=== PATIENT | female | born 1975 | race Caucasian/White ===

== ENCOUNTER 2016-06-04 17:31 | Emergency (ER) | payer BC ==
[2016-06-04 18:40] LABS: Hematocrit 39 % (35-47); Hemoglobin 13.2 g/dl (12.0-16.0); Mean Corpuscular HGB Conc 34 g/dl (31-36); Mean Corpuscular Hemoglobin 31 pg (27-31); Mean Corpuscular Volume 91 fL (80-97); Mean Platelet Volume 7 um3 (7.4-10.4); Red Blood Count 4.34 10^6/ul (4.0-5.4); Red Cell Distribution Width 13 % (10.5-15); White Blood Count 11.4 10^3/ul (3.5-10.8)
[2016-06-04 18:56] LABS: Albumin 4.5 g/dL (3.2-5.2); BUN/Creatinine Ratio 17.9 (8-20); Calcium 9.8 mg/dL (8.6-10.3); EGFR African American 97.1 (>60); EGFR Non-African American 75.5 (>60); Potassium 3.5 mmol/L (3.5-5.0); Total Bilirubin 0.3 mg/dL (0.2-1.0); Total Protein 7.5 g/dL (6.4-8.9)
[2016-06-04 19:05] LABS: Urine Bacteria Absent (Absent); Urine Bilirubin Negative (Negative); Urine Glucose Negative (Negative); Urine Nitrite Negative (Negative)
--- NOTE | 2016-06-04 19:32 | RAD ---
INDICATION: Early with bleeding COMPARISON: None TECHNIQUE: Transvaginal scans were performed for the purposes of early evaluation. FINDINGS: Transvaginal scans do not confirm an intrauterine gestation. The endometrial stripe measures 0.9 cm the uterus measures 8.5 x 4.9 x 5.4 cm and contains either a small lower uterine segment/cervical fibroid versus nabothian cyst The right ovary measures 3.7 x 1.4 x 1.1 cm and the left ovary 3.5 x 1.5 x 1.1 cm. IMPRESSION: NO INTRAUTERINE IS IDENTIFIED. THERE IS NO ADNEXAL MASS. SUGGEST CORRELATION WITH SERIAL BETA-HCGS AND FOLLOW-UP SONOGRAPHY INDICATED
[2016-06-04 19:42] VITALS: BP 147/105
--- NOTE | 2016-06-04 20:30 | ED ---
James Benites Janilya, scribed for Bella Bojorquez MD on 06/04/16 at 1906 . - HPI Summary HPI Summary: A 41 y/[facility]ting she has noticed 6 days ago. Pt also reports cramping, described as "pinching" pain. It briefly stopped, however , it started again today. Pt is not hemorrhaging, but bleeding mildly. Pt is 7 weeks . It is her second . LNMP 04/18/2016. No SHx of tobacco or EtOH use. PMHx HTN controlled with medicine. FMHx HTN. - History of Current Complaint Chief Complaint: EDOBProblems Stated Complaint: BLEEDING/7 WKS Time Seen by Provider: 06/04/16 18:29 Hx Obtained From: Patient Chief Complaint: Vaginal Bleeding Onset/Duration: Started Days Ago, Atraumatic, Still Present Timing: Constant Severity: Moderate Current Severity: Moderate - Assessment Hx Now: No - Allergies/Home Medications Allergies/Adverse Reactions: Allergies Allergy/AdvReac Type Severity Reaction Status Date / Time Penicillins [PCN] Allergy Rash Verified 03/29/16 14:12 PMH/Surg Hx/FS Hx/Imm Hx Endocrine/Hematology History: Denies: Hx Diabetes, Hx Thyroid Disease Cardiovascular History: Reports: Hx Hypertension Respiratory History: Denies: Hx Asthma, Hx Chronic Obstructive Pulmonary Disease (COPD) - Cancer History Cancer Type, Location and Year: white blood cells seen by dr hill 1 year ago retested with normal results Hx Chemotherapy: No Hx Radiation Therapy: No Infectious Disease History: No Infectious Disease History: Reports: Hx Shingles Denies: Hx Clostridium Difficile, Hx Hepatitis, Hx Human Immunodeficiency Virus (HIV), Hx of Known/Suspected MRSA, Hx Tuberculosis, Hx Known/Suspected VRE , Hx Known/Suspected VRSA, History Other Infectious Disease, Traveled Outside the [place] in Last 30 Days - Family History Known Family History: Positive: Hypertension - Social History Lives: With Family Alcohol Use: Weekly Alcohol Amount: 4 drinks Substance Use Type: Reports: None Smoking Status (MU): Never Smoked Tobacco Have You Smoked in the Last Year: No Review of Systems Positive: Abdominal Pain - mild cramping Genitourinary: Other - vaginal bleeding All Other Systems Reviewed And Are Negative: Yes Physical Exam - Physical Exam Triage Information Reviewed: Yes Vital Signs On Initial Exam: Temp Pulse Resp BP Pulse Ox 98.2 F 77 18 140/91 99 06/04/16 17:36 06/04/16 18:19 06/04/16 17:36 06/04/16 18:20 06/04/16 18:19 Vital Signs Reviewed: Yes Appearance: Positive: Well-Appearing, No Pain Distress Skin: Positive: Warm, Skin Color Reflects Adequate Perfusion, Dry Eyes: Positive: EOMI, [place] ENT: Positive: Pharynx normal, TMs normal Neck: Positive: Supple, Nontender Respiratory/Lung Sounds: Positive: Clear to Auscultation, Breath Sounds Present. Negative: Rales, Rhonchi - no wheezes Cardiovascular: Positive: RRR. Negative: Murmur, Rub - no gallops Abdomen Description: Positive: Nontender, Soft. Negative: Distended, Guarding - no rebound Bowel Sounds: Positive: Present Musculoskeletal: Positive: Strength/ROM Intact. Negative: Edema Left, Edema Right Neurological: Positive: Sensory/Motor Intact, Alert, Oriented to Person Place, Time, CN Intact II-III Psychiatric: Positive: Affect/Mood Appropriate Diagnostics - Vital Signs Vital Signs Temp Pulse Resp BP Pulse Ox 06/04/16 18:20 140/91 06/04/16 18:19 77 99 06/04/16 17:36 98.2 F 74 18 153/106 99 - Laboratory Lab Results: Lab Results 06/04/16 06/04/16 06/04/16 Range/Units 18:30 18:30 18:30 WBC 11.4 H (3.5-10.8) 10^3/ul RBC 4.34 (4.0-5.4) 10^6/ul Hgb 13.2 (12.0-16.0) g/dl Hct 39 (35-47) % MCV 91 (80-97) fL MCH 31 (27-31) pg MCHC 34 (31-36) g/dl RDW 13 (10.5-15) % Plt Count 292 (150-450) 10^3/ul MPV 7 L (7.4-10.4) um3 Neut % (Auto) 61.5 (38-83) % Lymph % (Auto) 29.5 (25-47) % [place] % (Auto) 6.2 (1-9) % Eos % (Auto) 2.4 (0-6) % Baso % (Auto) 0.4 (0-2) % Absolute Neuts (auto) 7.0 (1.5-7.7) 10^3/ul Absolute Lymphs (auto) 3.4 (1.0-4.8) 10^3/ul Absolute Monos (auto) 0.7 (0-0.8) 10^3/ul Absolute Eos (auto) 0.3 (0-0.6) 10^3/ul Absolute Basos (auto) 0 (0-0.2) 10^3/ul Absolute Nucleated RBC 0.01 10^3/ul Nucleated RBC % 0.1 Sodium 136 (133-145) mmol/L Potassium 3.5 (3.5-5.0) mmol/L Chloride 102 (101-111) mmol/L Carbon Dioxide 26 (22-32) mmol/L Anion Gap 8 (2-11) mmol/L BUN 15 (6-24) mg/dL Creatinine 0.84 (0.51-0.95) mg/dL Est GFR ( Amer) 97.1 (>60) Est GFR (Non-Af Amer) 75.5 (>60) BUN/Creatinine Ratio 17.9 (8-20) Glucose 84 (70-100) mg/dL Lactic Acid 0.5 (0.5-2.0) mmol/L Calcium 9.8 (8.6-10.3) mg/dL Total Bilirubin 0.30 (0.2-1.0) mg/dL AST 17 (13-39) U/L ALT 21 (7-52) U/L Alkaline Phosphatase 46 (34-104) U/L Total Protein 7.5 (6.4-8.9) g/dL Albumin 4.5 (3.2-5.2) g/dL Globulin 3.0 (2-4) g/dL Albumin/Globulin Ratio 1.5 (1-3) Result Diagrams: 06/04/16 18:30 06/04/16 18:30 Lab Statement: Any lab studies that have been ordered have been reviewed, and results considered in the medical decision making process. - Ultrasound No standard instances Ultrasound Interpretation: Positive (See Comments) - IMPRESSION: NO INTRAUTERINE IS IDENTIFIED. THERE IS NO ADNEXAL MASS. SUGGEST CORRELATION WITH SERIAL BETA-HCGS AND FOLLOW-UP SONOGRAPHY INDICATED Ultrasound Interpretation Completed By: Radiologist Course/Dx - Course Course Of Treatment: 41 yo female with positive test who comes in with vaginal bleeding and no pain on exam. Her u/s does not show a and her bhcg is very low. Pt understands there is the risk of this being an ectopic, no or a very early normal and knows she needs followup bhcg. Pt will receiving [facility] tonight before discharge. - Diagnoses Provider Diagnoses: Threatened miscarriage in early Discharge - Discharge Plan Condition: Stable Disposition: HOME Patient Education Materials: Threatened Miscarriage (ED) Referrals: Luisito Tello MD [Primary Care Provider] - Additional Instructions: Follow up with your OB in two days. The documentation as recorded by the James warner Janilya accurately reflects the service I personally performed and the decisions made by me, Bella Bojorquez MD.
[2016-06-04] MEDS ORDERED: RHO D Immune Globulin (HUMAN)* 300 MCG = 1,500 I.U. INJ IM SCH (21:00)
== END 2016-06-04 21:00 | disposition home or self-care (01) ==
LOC: ED 17:31
DX: O20.0 Threatened abortion (principal); R10.9 Unspecified abdominal pain; N93.9 Abnormal uterine and vaginal bleeding, unspecified; Z3A.01 Less than 8 weeks gestation of pregnancy
CPT/HCPCS: 36415; 76817; 80053; 81003; 81015; 83605; 84702; 85025; 85610; 85730; 86850; 86900; 86901; 87086; 96372; 99282; J2790

== ENCOUNTER 2017-09-24 08:08 | Emergency (ER) | payer BC ==
[2017-09-24 08:41] VITALS: BP 140/92
--- NOTE | 2017-09-24 09:47 | UC ---
Artur Benites Julia, scribed for Leanne Huber MD on 09/24/17 at 0913 . General HPI - HPI Summary HPI Summary: This patient is a 42 year old F presenting to [facility] with a chief complaint of general malaise with chills, nausea, and fatigue for the past three days. Patient reports minor post nasal drip, neck pain, body ache. Patient denies ear pain, sinus pain, cough, rashes, vomiting, diarrhea, and dysuria. Symptoms relieved by NSAIDS. The patient rates the pain 2/10 in severity. Son is positive strep contact diagnosed on 09/22/17. Pt requesting a strep test. LNMP . Declines testing. Blood pressure medication not taken today , as she ran out of prescription. She is picking up her prescription later today. No OTC Meds taken Medications reviewed with patient. - History of Current Complaint Chief Complaint: UCGeneralIllness Stated Complaint: HEADACHE,NECK PAIN Hx Obtained From: Patient Hx Last Menstrual Period: 09/04/17 Onset/Duration: Lasting Days Timing: Constant Pain Intensity: 2 Pain Location at: neck and body ache Character: general malaise Alleviating: NSAIDS Associated Signs & Symptoms: Positive: Nausea, Other - sweats, fatigue. Negative: Dysuria - Allergy/Home Medications Allergies/Adverse Reactions: Allergies Allergy/AdvReac Type Severity Reaction Status Date / Time Beta-Blockers Allergy Palpitation Verified 09/24/17 08:21 (Beta-Adrenergic Bloc s Penicillins Allergy Rash Verified 09/24/17 08:21 Home Medications: Home Medications Butalb/Acetamin/Caff TAB* [Fioricet TAB*] 1 tab PO Q6H PRN 09/24/17 [History Confirmed 09/24/17] PMH/Surg Hx/FS Hx/Imm Hx Previously Healthy: Yes Cardiovascular History: Hypertension - Surgical History Surgical History: Yes Surgery Procedure, Year, and Place: oral surgery 2005 - Family History Known Family History: Positive: Hypertension - Social History Occupation: Employed Full-time Lives: With Family Alcohol Use: Occasionally Alcohol Amount: 4 drinks Substance Use Type: None Smoking Status (MU): Never Smoked Tobacco Have You Smoked in the Last Year: No - Immunization History Most Recent Influenza Vaccination: utd Most Recent Tetanus Shot: unsure Most Recent Pneumonia Vaccination: none Review of Systems Constitutional: Chills - and sweats, Fatigue Skin: Negative ENT: Negative - ear pain, sinus pain, Other - post nasal drip Respiratory: Negative Gastrointestinal: Negative - vomiting, diarrhea, Nausea Genitourinary: Negative All Other Systems Reviewed And Are Negative: Yes Physical Exam Triage Information Reviewed: Yes Appearance: Well-Appearing, No Pain Distress, Well-Nourished, Other: - congested sounding Vital Signs: Initial Vital Signs Temp 99.1 F 09/24/17 08:24 Pulse 75 09/24/17 08:24 Resp 16 09/24/17 08:24 BP 149/110 09/24/17 08:24 Pulse Ox 98 09/24/17 08:24 Vital Signs Reviewed: Yes Eye Exam: Normal Eyes: Positive: Conjunctiva Clear ENT: Positive: Pharynx normal, Nasal congestion, Uvula midline. Negative: TMs normal - scant fluid right ear Dental Exam: Normal Neck exam: Normal Neck: Positive: Supple, Nontender, No Lymphadenopathy, Other: - Full AROM - no discomfort Respiratory Exam: Normal Respiratory: Positive: Chest non-tender, Lungs clear, Normal breath sounds, No respiratory distress, No accessory muscle use Cardiovascular: Positive: RRR, No Murmur, Pulses Normal Abdominal Exam: Normal Abdomen Description: Positive: Nontender, No Organomegaly, Soft Bowel Sounds: Positive: Present Musculoskeletal Exam: Normal Musculoskeletal: Positive: Strength Intact Neurological Exam: Normal Neurological: Positive: Alert Psychological Exam: Normal Psychological: Positive: Normal Response To Family Skin Exam: Normal Course/Dx - Course Course Of Treatment: PT with congestion, body aches, fatigue x 5 days. Pt with strep throat exposure. Will check strep - neg. recommend flonase. motrin/ apap. hydrate. secretion precaution. return precaution. pt in agreement with plan. Pt with HTN - needs to resume meds - pt has an Rx - Differential Dx - Multi-Symptom Provider Diagnoses: URI. congestion. hypertension Discharge - Sign-Out/Discharge Documenting (check all that apply): Discharge/Admit/Transfer - Discharge Plan Condition: Stable Disposition: HOME Prescriptions: Fluticasone NASAL SPRAY 50MCG* [Flonase NASAL SPRAY 50MCG*] 2 spray BOTH NARES DAILY #1 btl Patient Education Materials: Upper Respiratory Infection (ED), Serous Otitis Media (ED) Forms: *Work Release Referrals: Luisito eTllo MD [Primary Care Provider] - Additional Instructions: The doctor that evaluated you today thinks your symptoms are related to a viral infection. These symptoms can last 7-8 days until you are feeling completely normal. It is recommended the following: - alternate ibuprofen (Advil, Motrin) and tylenol every 3 hours for fever, body aches - Stay well hydrated - drink plenty of non-alcoholic, non-caffinated beverages - use nasal spray as instructed - Okay to use over the counter allergy and symptomatic treatment. Be careful with decongestant medication such as psuedoephederine. Your blood pressure was noted to be high today. Decongestants can increased blood pressure. It is important you resume your blood pressure medication Contact your doctor to schedule a follow-up appointment. If your symptoms change, you have uncontrolled vomiting, pain, fever, or ANY other concerns it is recommended you go directly to the emergency department for further evaluation - Billing Disposition and Condition Condition: STABLE Disposition: HOME The documentation as recorded by the Artur warner Julia accurately reflects the service I personally performed and the decisions made by me, Leanne Huber MD.
== END 2017-09-24 09:55 | disposition home or self-care (01) ==
LOC: UCEAST 08:08
DX: R53.81 Other malaise (principal); R68.83 Chills (without fever); R11.0 Nausea; R53.83 Other fatigue; R09.82 Postnasal drip; M54.2 Cervicalgia; M79.1 Myalgia; I10 Essential (primary) hypertension; Z88.0 Allergy status to penicillin; Z88.8 Allergy status to other drugs, medicaments and biological substances
CPT/HCPCS: 87651; 99212; G0463

== ENCOUNTER 2019-02-19 10:15 | Emergency (ER) | payer BC ==
[2019-02-19 10:39] VITALS: BP 139/75
--- NOTE | 2019-02-19 10:59 | UC ---
Throat Pain/Nasal Donis HPI - HPI Summary HPI Summary: 43 yo female presents with sore throat. She tells me that 3-4 days ago she developed a sore throat, headache, and general body aches. Symptoms have been persisting since that time. She has not taken anything OTC for her symptoms. She is eating, drinking, and tolerating po well. Denies fever, chills, sinus symptoms, cough, sob, rash. - History of Current Complaint Chief Complaint: UCRespiratory Stated Complaint: THROAT PAIN Time Seen by Provider: 02/19/19 10:59 Hx Obtained From: Patient Hx Last Menstrual Period: 02/12/19 Onset/Duration: Gradual Onset Severity: Moderate Pain Intensity: 8 Pain Scale Used: 0-10 Numeric - Allergies/Home Medications Allergies/Adverse Reactions: Allergies Allergy/AdvReac Type Severity Reaction Status Date / Time Beta-Blockers Allergy Palpitation Verified 02/19/19 10:39 (Beta-Adrenergic Bloc s Penicillins Allergy Rash Verified 02/19/19 10:39 Home Medications: Home Medications Atenolol TAB* [Tenormin TAB* 25 MG] 25 mg PO DAILY 02/19/19 [History Confirmed 02/19/19] Ibuprofen 600 mg PO BID 02/19/19 [History Confirmed 02/19/19] PMH/Surg Hx/FS Hx/Imm Hx Cardiovascular History: Hypertension Neurological History: Migraine - Surgical History Surgical History: Yes Surgery Procedure, Year, and Place: oral surgery 2005 - Family History Known Family History: Positive: Hypertension - Social History Occupation: Employed Full-time Lives: With Family Alcohol Use: Occasionally Alcohol Amount: 4 drinks Substance Use Type: None Smoking Status (MU): Never Smoked Tobacco Have You Smoked in the Last Year: No - Immunization History Most Recent Influenza Vaccination: utd Most Recent Tetanus Shot: unsure Most Recent Pneumonia Vaccination: none Review of Systems All Other Systems Reviewed And Are Negative: No Constitutional: Positive: Negative Skin: Positive: Negative Eyes: Positive: Negative ENT: Positive: Sore Throat Respiratory: Positive: Negative Cardiovascular: Positive: Negative Gastrointestinal: Positive: Negative Neurovascular: Positive: Negative Neurological: Positive: Negative Psychological: Positive: Negative Physical Exam - Summary Physical Exam Summary: GENERAL: NAD. WDWN. No pain distress. SKIN: No rashes, sores, lesions, or open wounds. HEENT: Head: AT/NC Eyes: EOM intact. Conjunctiva clear without inflammation or discharge. Ears: Hearing grossly normal. TMs intact, no bulging, erythema, or edema. Nose: Nasal mucosa pink and moist. NTTP maxillary and frontal sinus. Throat: Posterior oropharynx without exudates, erythema, or tonsillar enlargement. Uvula midline. NECK: Supple. Nontender. No lymphadenopathy. CHEST: CTAB. No accessory muscle use. Breathing comfortably and in no distress. CV: RRR. Pulses intact. Cap refill <2seconds NEURO: Alert. PSYCH: Age appropriate behavior. Triage Information Reviewed: Yes Vital Signs: Initial Vital Signs Temp 97.5 F 02/19/19 10:34 Pulse 66 02/19/19 10:34 Resp 18 02/19/19 10:34 BP 139/75 02/19/19 10:34 Pulse Ox 98 02/19/19 10:34 Laboratory Tests 02/19/19 11:07 Group A Strep Rapid Negative Vital Signs Reviewed: Yes Throat Pain/Nasal Course/Dx - Course Course Of Treatment: POC strep negative. Suspect viral illness. Advised to try OTC tylenol/ibuprofen and throat lozenges for comfort. Be rechecked if symptoms do not improve in 5-7 days - Differential Dx/Diagnosis Provider Diagnosis: Sore throat Discharge ED - Sign-Out/Discharge Documenting (check all that apply): Patient Departure All imaging exams completed and their final reports reviewed: No Studies - Discharge Plan Condition: Stable Disposition: HOME Patient Education Materials: Pharyngitis (ED) Referrals: Luisito Tello MD [Primary Care Provider] - Additional Instructions: If you develop a fever, shortness of breath, chest pain, new or worsening symptoms - please call your PCP or go to the ED immediately. Your blood pressure was high at todays visit. Please see your primary provider within 4 weeks for recheck and re-evaluation. Your strep test was negative today Your symptoms are likely from a viral infection. Viral infections do not respond to antibiotics and are limited to the treatment of symptoms. Viral infections typically run their course in 7-10 days. Drink plenty of fluids to avoid dehydration especially if you are running any fever. Use salt water gargles several times a day. Take over the counter acetaminophen (Tylenol) or ibuprofen (Advil, Motrin) according to directions as needed for pain or fever. You may also use Chloraseptic spray or Cepacol lonzenges according to directions which contain a numbing medication and can provide some temporary relief from your sore throat. Return here or follow up with your primary care provider in 7 days if symptoms persist. - Billing Disposition and Condition Condition: STABLE Disposition: Home
== END 2019-02-19 11:30 | disposition home or self-care (01) ==
LOC: UCEAST 10:15
DX: J02.9 Acute pharyngitis, unspecified (principal); I10 Essential (primary) hypertension; G43.909 Migraine, unspecified, not intractable, without status migrainosus; Z88.8 Allergy status to other drugs, medicaments and biological substances; Z88.0 Allergy status to penicillin; Z79.899 Other long term (current) drug therapy
CPT/HCPCS: 87651; 99212; G0463